=== PATIENT | female | born 1940 | race Caucasian/White ===

== ENCOUNTER → 2019-12-27 | Outpatient (CLI) | payer OTHER, BC ==
[~2019-12-27] MED LIST: BYSTOLIC20 M1 PO; COL100 PO; COZ50 PO; HYDROCHLOROTH12.5 MG PO; OMEPRAZOLE DR20 M1 PO; SYSTANE BALANCE10 ML OP; ZETIA10 M1 PO
== END | disposition home or self-care (01) ==
LOC: US 08:24
PROVIDERS: ATTEND Family Medicine
PROC: BH4CZZZ Ultrasonography of Head and Neck (ICD-10-PCS; principal; 2019-12-27)
DX: R59.1 Generalized enlarged lymph nodes (principal)